=== PATIENT | female | born 1980 | race Caucasian/White ===

== ENCOUNTER 2021-05-25 19:45 | Emergency (ER) | payer OTHER ==
[~2021-05-25] VITALS: Ht 167.6 cm; Wt 59.0 kg
[~2021-05-25 19:45] MED LIST: AUGMENTIN 500-1 EACH PO; CIPRO; CLARITIN10 MG PO; CLEOCIN HCL150 MG PO; FLONASE; IBUPROFEN 800800 MG PO; METHADONE; NORFLEX100 MG PO; PERCOCET 5-3251 EACH PO; PHENERGAN 25 MG25 M1 PO; ZOFRAN ODT4 MG PO
[2021-05-25] MEDS ORDERED: CILOXAN5 ML INTRAOCULR (20:49)
[2021-05-25 21:02] VITALS: BP 120/70
== END 2021-05-25 21:03 | disposition home or self-care (01) ==
LOC: M.ERS 19:45
DX: H11.31 Conjunctival hemorrhage, right eye (principal); Z98.51 Tubal ligation status; Z79.899 Other long term (current) drug therapy